=== PATIENT | male | born 1945 | race Caucasian/White ===

== ENCOUNTER 2023-11-28 11:53 | Emergency (ER) | payer OTHER, SELFPAY ==
[2023-11-28 12:06] VITALS: BP 164/89; BP 183/114; PULSE 100; PULSE 87; RESP 18; TEMP 36.7; O2SAT 96; O2SAT 97; BMI 29.4
--- NOTE | 2023-11-28 12:42 | PC.NURSE ---
A+O x4, FROM HOME, NOSEBLEED x 1hr, PREVIOUS NOSEBLEED x 2 wks AGO LASTED ABOUT 30-45 MINS. NO PREVIOUS HX OF NOSEBLEEDS. Hx AFIB-ON ELIQUIS, PCP LOWERED DOSE AFTER 1st NOSEBLEED EPISODE. HTN-ON METOPROLOL, DID NOT TAKE MED TODAY, EMS BP 183/114, B/P IN ER 164/89. RECENT DX LUKEMIA, BEING FOLLOWED BY [facility].
--- NOTE | 2023-11-28 14:17 | ED.GENADULT ---
HPI - General Adult General Chief complaint: General Medical Stated complaint: NOSEBLEED X1 HOUR,+THINNERS,BP 192/118,HX LEUKEMIA Time Seen by Provider: 11/28/23 14:05 Source: patient Mode of arrival: EMS Limitations: no limitations History of Present Illness HPI narrative: Patient is a 78-year-old male on long-term anticoagulation with Eliquis, history of leukemia who presents emergency department via EMS for evaluation of epistaxis Patient provides his electronic health portal with most recent CBC from 11/22/2023 including WBC 433,000, H&H 10/39.8 [place] [address] she is actually increased when compared to his prior levels of the past 6 months. He reports an episode of epistaxis approximately 2 weeks ago, he spoke with his software quality engineer, Dr. Rebecca harmon who advised him to decrease his Eliquis to 5 mg daily rather than twice daily. He states that he underwent cardiac ablation in June of last year at [facility] with Dr. Friedman and states that in 6 months he has a follow-up visit in at that time he may consider completely discontinuing the Eliquis. Denies any trauma today that would have brought on this episode of epistaxis. Bleeding is primarily from the right naris. Despite pressure application epistaxis persists and trickle down the oropharynx. Related Data Allergies Allergy/AdvReac Type Severity Reaction Status Date / Time sulfamethoxazole AdvReac Mild Rash Verified 11/28/23 12:36 [From Bactrim] trimethoprim [From Bactrim] AdvReac Mild Rash Verified 11/28/23 12:36 Review of Systems Review of Systems: Yes all other systems are reviewed and are negative PMFSH Past Medical History Attestation statement: The following information was validated with the patient. Source: old records reviewed Social History Social History Smoked in Last 30 Days: No Use of substances other than those prescribed or required for medical reasons: No Advance Directives: No Advance Directives Information Provided: No Physical Exam ED Vital Signs: Vital Signs - 24 hr 11/28/23 12:06 11/28/23 15:53 Temperature 98.1 F 97.7 F Pulse Rate 87 84 Respiratory Rate 18 16 Blood Pressure 164/89 H 113/77 Pulse Oximetry 96 96 Oxygen Delivery Method Room Air Room Air BMI result Body Mass Index 29.4 Appearance: Alert.?Oriented to person, place and time. No acute distress.?Normal affect. Eyes: Pupils equal, round and reactive to light.? ENT: Acute epistaxis of the right naris, expect the reading clots, noted to be in the posterior oropharynx Neck: Normal inspection.? Neck supple.?? CVS: Heart sounds normal. Normal heart rate and rhythm.? Pulses normal.?? Respiratory: No respiratory distress.? Lung sounds clear to auscultation bilaterally?? Abdomen: Soft and non-tender. Normoactive bowel sounds. ? Skin: Skin warm and dry.? Normal skin color.? Extremities: No lower extremity edema.? Neuro: Moves all extremities spontaneously. Sensation intact bilaterally. CN II-XII intact. No focal neuro deficits. Ambulates with normal steady gait. Course Reevaluation(s) Reevaluation #1: Intranasal afrin applied to the right nare with continuous pressure reapplied Time: 14:51 Reevaluation #2: Upon visual inspection noted to have an area right lateral naris at approximately 11:00 o'clock with active bleeding, applied silver nitrate with resolution. CBC is consistent with prior labs as per HPI. Will monitor in the emergency department for another 1-2 hours to assure bleeding cessation. Time: 15:29 Reevaluation #3: Signed out to Arely Horn NP. Time: 16:33 Medications Administered Discontinued Medications Generic Name Dose Route Start Last Admin Trade Name Abbie PRN Reason Stop Dose Admin Oxymetazoline HCl 2 spray 11/28/23 14:39 11/28/23 14:47 Oxymetazoline Hcl 0.05 % Nasal 15 Ml [place] NOSTRIL-B 11/28/23 14:40 2 spray ONCE ONE Administration Silver Nitrate 1 appl 11/28/23 15:08 11/28/23 16:31 Silver Nitrate Applicator Stick..Ea. TOPICAL 11/28/23 15:09 1 appl ONCE ONE Administration Procedures Epistaxis Control Time Out Performed: Yes Nostril: Yes right Nose prepped with: Yes oxymetazoline Direct inspection: Yes anterior source identified Direct inspection method: Yes nasal speculum and Yes otoscope Clots removed by: Yes blowing nose Epistaxis treatment: Yes silver nitrate cautery Results of treatment: Yes bleeding controlled Complications: Yes none Medical Decision Making Medical Decision Making MDM Narrative: Patient is a 78-year-old male with past medical history of atrial fibrillation, hyperlipidemia, leukemia recently started on Pirtobrutinib/ Jayprica, hypothyroidism, presenting to emergency department for evaluation of right naris epistaxis. Has had some resolution with anterior naris pressure, he was noted to expectorate clotted blood and has tosha blood to the posterior oropharynx though this may be secondary to positioning rather than posterior epistaxis. To obtain serum labs to evaluate for anemia/thrombocytopenia. Differential Diagnosis Differential Diagnoses: The differential diagnosis associated with the presentation includes (See narrative above) Admission/Observation Consideration of admission/observation: Escalation of care including admission/observation considered (See course narrative for further detail) Lab Data MDM Lab Attestation statement: I reviewed the patient's lab results. (See course narrative for further detail) 11/28/23 14:53 11/28/23 14:53 Labs: Lab Results 11/28/23 Range/Units 14:53 WBC 436.4 H* (4.8-10.8) X10*3/uL RBC 3.23 L (4.60-5.80) X10*6/uL Hgb 9.5 L (14.0-18.0) g/dl Hct 38.3 L (42.0-52.0) % MCV 118.6 H (80.0-98.0) fL MCH 29.4 (27.0-33.0) pg MCHC 24.8 L (31.0-36.0) g/dl RDW Not Reportable Plt Count 62 L (160-400) X10*3/uL MPV 11.2 (9.4-12.4) fL Immature Gran % (Auto) Cancelled Neut % (Auto) Cancelled Lymph % (Auto) Cancelled [place] % (Auto) Cancelled Eos % (Auto) Cancelled Baso % (Auto) Cancelled Lymph # (Auto) Cancelled [place] # (Auto) Cancelled Eos # (Auto) Cancelled Baso # (Auto) Cancelled Abs Immat Gran (auto) Cancelled Absolute Neuts (auto) Cancelled Absolute Nucleated RBC 0.000 (0.0-0.012) X10*3/uL Nucleated RBC % (auto) 0.0 (0.0-0.2) /100WBC Neutrophils % (Manual) 1 L (45-73) % Lymphocytes % (Manual) 99 H (20-40) % Abs Neuts (Manual) 4.4 (2.0-8.3) X10*3/uL Lymphocytes # (Manual) 432.0 H (1.2-4.9) X10*3/uL Smudge Cells PRESENT Platelet Estimate DECREASED (NORMAL) Plt Morphology Comment NORMAL RBC Morphology NOTED Macrocytosis 1+ (5-14) /OIF PT 12.6 (11.1-13.3) SEC INR 1.0 (0.9-1.1) Sodium 144 (135-145) mmol/L Potassium 4.4 (3.3-5.1) mmol/L Chloride 109 H (96-108) mmol/L Carbon Dioxide 27 (22-29) mmol/L Anion Gap 12 (12-20) BUN 20 H (9-16) mg/dL Creatinine 1.05 (0.5-1.4) mg/dL Estim Creat Clear Calc 68.6 Estimated GFR > 60 Random Glucose 102 (60-115) mg/dL Calcium 9.7 (8.4-10.2) mg/dL Total Bilirubin 0.6 (0.0-1.0) mg/dL AST 19 (5-37) U/L ALT 13 (0-40) U/L Alkaline Phosphatase 148 H (39-117) U/L Total Protein 7.2 (6.5-8.0) g/dL Albumin 4.1 (3.5-5.0) g/dL Independent Historian Clinical information obtained from an independent historian. History obtained from or confirmed by: Spouse (Present who confirms history) and EMS Critical Care Time Critical Care Time Critical Care Time: Yes Total Critical Care Time: 60 Attestation: I personally attest to this critical care time spent taking care of the patient exclusive of all other billable procedures was approximately 60 minutes including initial evaluation of patient, ordering tests, procedural management of epistaxis, documentation, re-evaluation. Discharge Plan Discharge Clinical Impression: Acute anterior epistaxis Patient Disposition: Home, Self-Care Instructions: Nosebleed (ED) Additional Instructions: Please follow-up closely with your software quality engineer. Should bleeding return you should return back to emergency department for further evaluation. Referrals: Cynthia Baldwin MD [Primary Care Provider] - Interventions: ED Discharge Assessment Last Done: 11/28/23 17:09 Discharge Date/Time: 11/28/23 17:10
[2023-11-28] MEDS: Oxymetazoline HCl 0.05 % Nasal 15 ML SPRAY 2 SPRAY NOSTRIL-B (14:47)
[2023-11-28 15:01] LABS: Hematocrit 38.3 % (42.0-52.0); Hemoglobin 9.5 g/dl (14.0-18.0); Mean Corpuscular HGB Conc 24.8 g/dl (31.0-36.0); Mean Corpuscular Hemoglobin 29.4 pg (27.0-33.0); Mean Platelet Volume 11.2 fL (9.4-12.4); PLT CLUMP 1; Red Blood Count 3.23 X10*6/uL (4.60-5.80)
[2023-11-28 15:04] LABS: Mean Corpuscular Volume 118.6 fL (80.0-98.0); WBC ABN SCTR FOR CBC 1
[2023-11-28 15:05] LABS: Prothrombin Time 12.6 SEC (11.1-13.3)
[2023-11-28 15:30] LABS: Alanine Aminotransferase 13 U/L (0-40); Albumin Level 4.1 g/dL (3.5-5.0); Alkaline Phosphatase 148 U/L (39-117); Anion Gap 12 (12-20); Aspartate Amino Transferase 19 U/L (5-37); Bilirubin Total 0.6 mg/dL (0.0-1.0); Blood Urea Nitrogen 20 mg/dL (9-16); Calcium 9.7 mg/dL (8.4-10.2); Carbon Dioxide 27 mmol/L (22-29); Chloride 109 mmol/L (96-108); Creatinine Clr Calc Pharmacy 68.6; Estimated Glomerular Filt Rate > 60; Glucose Random 102 mg/dL (60-115); Potassium 4.4 mmol/L (3.3-5.1); Sodium 144 mmol/L (135-145); Total Protein 7.2 g/dL (6.5-8.0)
[2023-11-28 15:43] LABS: Platelet Count 62 X10*3/uL (160-400); White Blood Count 436.4 X10*3/uL (4.8-10.8)
[2023-11-28 15:44] LABS: Lymphocytes Percent Manual 99 % (20-40); Neutrophils Percent Manual 1 % (45-73)
[2023-11-28 15:45] LABS: Macrocytosis 1+ (5-14) /OIF; Platelet Estimate DECREASED (NORMAL); Platelet Morphology Comment NORMAL; RBC Morphology NOTED; Smudge Cells PRESENT
[2023-11-28 15:52] LABS: Neutrophils Absolute Manual 4.4 X10*3/uL (2.0-8.3)
[2023-11-28 15:53] VITALS: BP 113/77; PULSE 84; RESP 16; TEMP 36.5; O2SAT 96
[2023-11-28] MEDS: Silver Nitrate Applicator STICK..EA. 1 APPL TOPICAL (16:31)
[2023-11-28 17:39] LABS: Rouleau PRESENT
== END 2023-11-28 17:10 | disposition home or self-care (01) ==
PROVIDERS: Nurse Practitioner Family; Emergency Provider Student in an Organized Health Care Education/Training Program; PCP Family Medicine
DX: R04.0 Epistaxis (principal); Z79.01 Long term (current) use of anticoagulants
CPT/HCPCS: 30901; 36415; 80053; 85007; 85025; 85027; 85610; 99283; 99284

== ENCOUNTER 2024-08-02 22:25 | Emergency (ER) | payer OTHER, SELFPAY ==
--- NOTE | 2024-08-02 | ECG_ITS ---
Test Reason : hypertension Blood Pressure : / mmHG Vent. Rate : 076 BPM Atrial Rate : 076 BPM P-R Int : 194 ms QRS Dur : 100 ms QT Int : 414 ms P-R-T Axes : 012 -21 019 degrees QTc Int : 465 ms Sinus rhythm with Premature supraventricular complexes Otherwise normal ECG No previous ECGs available Referred By: Generic ED Physician Electronically Signed By:Tariq Kingsley
--- NOTE | ~2024-08-02 | XR_ITS ---
EXAMINATION: XR CHEST CLINICAL INFORMATION: Cough COMPARISON: None available. TECHNIQUE: Frontal view of the chest was obtained. FINDINGS: Sternal wires overlie the chest. Cardiac silhouette is at the upper limits of normal in size, likely related to low lung volumes. Mild right basilar atelectasis with a small right pleural effusion. No pneumothorax. 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 XR/XR chest 1V IMPRESSION: Mild right basilar atelectasis with a small right pleural effusion. No focal airspace consolidation identified. Electronically signed by: Jaydon Coronado MD 08/02/2024 11:25 PM [facility]MONS
--- NOTE | ~2024-08-02 | CT_ITS ---
EXAMINATION: CT HEAD WITHOUT CONTRAST CLINICAL INFORMATION: Headache COMPARISON: None available. TECHNIQUE: Contiguous axial imaging was performed from the skull base to vertex without intravenous administration of contrast. This CT examination was performed using dose optimization techniques as appropriate, variously including the following: *Automated exposure control *Adjustment of mA and/or kV according to patient size (this includes techniques or standardized protocols for targeted exams where dose is matched to indication/reason for exam; i.e. extremities or head) *Use of iterative reconstruction technique DLP: 805 mGy-cm FINDINGS: No intracranial hemorrhage, tumors or acute infarcts identified. Mild diffuse symmetric prominence of ventricles and sulci. Mild scattered subcortical and periventricular white matter patchy hypodensities. Segmental calcific atherosclerosis of the cavernous portions of the internal carotid arteries. Normal appearance of the orbits and globes. No extra cranial soft tissue inflammatory changes. The left maxillary sinus is partially visualized and demonstrates near-complete opacification along with mural sclerosis and thickening. Findings are suspicious for chronic sinusitis. No mastoid or middle ear cavity effusions. CT/CT head/brain wo IV con IMPRESSION: 1. No acute intracranial abnormalities. 2. Chronic left maxillary sinusitis. 3. 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 Electronically signed by: Adrian Schultz MD 08/03/2024 12:56 AM [facility]
[2024-08-02 22:33] VITALS: BP 190/103; PULSE 70; O2SAT 98
[2024-08-02 22:34] VITALS: BP 189/117; PULSE 80; RESP 17; TEMP 36.6; O2SAT 96
[2024-08-02 22:58] LABS: Hemoglobin 12.5 g/dl (14.0-18.0); Mean Corpuscular Volume 99.5 fL (80.0-98.0); Mean Platelet Volume 11.7 fL (9.4-12.4); PLT CLUMP 1; WBC ABN SCTR FOR CBC 1
[2024-08-02 23:00] LABS: Hematocrit 39.6 % (42.0-52.0); Mean Corpuscular HGB Conc 31.6 g/dl (31.0-36.0); Mean Corpuscular Hemoglobin 31.4 pg (27.0-33.0); Red Blood Count 3.98 X10*6/uL (4.60-5.80); Red Cell Distribution Width 15.2 % (11.0-16.0)
[2024-08-02 23:06] LABS: Alanine Aminotransferase 19 U/L (0-40); Alkaline Phosphatase 88 U/L (39-117); Anion Gap 13 (12-20); Aspartate Amino Transferase 24 U/L (5-37); Bilirubin Total 0.4 mg/dL (0.0-1.0); Blood Urea Nitrogen 17 mg/dL (9-16); Calcium 8.7 mg/dL (8.4-10.2); Carbon Dioxide 26 mmol/L (22-29); Chloride 107 mmol/L (96-108); Creatinine Clr Calc Pharmacy 54.6; Estimated Glomerular Filt Rate 49; Glucose Random 136 mg/dL (60-115); Potassium 3.9 mmol/L (3.3-5.1); Sodium 142 mmol/L (135-145); Total Protein 6.9 g/dL (6.5-8.0)
[2024-08-02 23:13] LABS: Troponin-I High Sensitivity 15.7 ng/L (<3.5-35.0)
[2024-08-02 23:15] LABS: Platelet Count 92 X10*3/uL (160-400)
[2024-08-02 23:17] LABS: White Blood Count 117.7 X10*3/uL (4.8-10.8)
[2024-08-02 23:39] LABS: Influenza A PCR NEGATIVE (Negative); Influenza B PCR NEGATIVE (Negative); Resp Syncy Virus RNA Qual PCR NEGATIVE (Negative); SARS COV2 PCR INHOUSE NEGATIVE (Negative)
--- NOTE | 2024-08-02 23:43 | ED_ITS ---
HPI - General Adult General Chief complaint: Headache Stated complaint: Htn, headache, a-fib Time Seen by Provider: 08/02/24 23:17 Source: patient History of Present Illness ED Provider: Rom YOO narrative: 78-year-old male with past medical history of leukemia presenting for headache and hypertension. Patient states that he has been experiencing nasal congestion and cough for approximately 1 week. Over the past few days he has been experiencing right-sided headache and noticed that his blood pressure was elevated. He states he has not missed any of his home medication. He denies visual disturbances, chest pain, shortness of breath, abdominal pain, nausea, vomiting, urinary symptoms, fevers, chills. Related Data Allergies Allergy/AdvReac Type Severity Reaction Status Date / Time sulfamethoxazole AdvReac Mild Rash Verified 08/02/24 22:36 [From Bactrim] trimethoprim [From Bactrim] AdvReac Mild Rash Verified 08/02/24 22:36 Review of Systems 2 Review of Systems: Patient endorses nasal congestion, cough, headache and hypertension Yes all other systems are reviewed and are negative [facility] Social History Social History Smoked in Last 30 Days: No Use of substances other than those prescribed or required for medical reasons: No Advance Directives: No Do you have a plan to hurt others: No Plan Physical Exam ED Vital Signs: Vital Signs - 24 hr 08/02/24 22:34 08/03/24 00:39 08/03/24 00:42 Temperature 97.8 F Pulse Rate 80 88 Respiratory Rate 17 18 Blood Pressure 189/117 H 182/96 H 181/94 H Pulse Oximetry 96 98 Oxygen Delivery Method Room Air Room Air 08/03/24 01:08 08/03/24 01:36 Temperature Pulse Rate 74 Respiratory Rate 14 Blood Pressure 173/99 H 174/87 H Pulse Oximetry Oxygen Delivery Method BMI result Body Mass Index 30.0 Well-appearing in no acute distress Mild bilateral maxillary sinus tenderness to palpation Oropharynx clear with no erythema or exudates Lungs clear to auscultation bilaterally; normal S1-S2 regular rate and rhythm Abdomen is soft nontender nondistended Medications Administered Discontinued Medications Generic Name Dose Route Start Last Admin Trade Name Freq PRN Reason Stop Dose Admin Acetaminophen 650 mg 08/02/24 23:44 08/03/24 00:05 Acetaminophen 325 Mg Tablet PO 08/02/24 23:45 650 mg ONCE ONE Administration Hydralazine HCl 5 mg 08/03/24 00:29 08/03/24 00:39 Hydralazine Hcl 20 Mg/Ml Vial IVPUSH 08/03/24 00:30 5 mg ONCE ONE Administration Protocol Hydralazine HCl 5 mg 08/03/24 01:31 08/03/24 01:36 Hydralazine Hcl 20 Mg/Ml Vial IVPUSH 08/03/24 01:32 5 mg ONCE ONE Administration Protocol Medical Decision Making Medical Decision Making [facility] Narrative: This is a 78-year-old male presenting for cough, congestion headache and hypertension. Concerned for the following; right URI, COVID, flu, pneumonia, head bleed, uncontrolled hypertension, hypertensive emergency/urgency, electrolyte/metabolic disturbance Labs and imaging studies ordered Labs notable for elevated white blood cell count (patient has leukemia and confirmed he has high WBCs), stable H&H, electrolytes within normal limits, slightly elevated creatinine, troponin of 5.7 Sinus rhythm EKG with no signs of ischemia And not appreciate head bleed on patient's CT scan and the Radiology impression is negative for acute intracranial findings although chronic sinusitis was noted. I also reviewed patient's chest x-ray and do not appreciate a large pneumo or pneumonia however the radiologist notes small right pleural effusion Patient was treated with hydralazine and hydrochlorothiazide with improvement in blood pressure. I also provided Afrin for On reassessment patient is still well-appearing and walking with steady gait. He would like to be discharged home. I told him that he has an AQUILINO I gave him follow up instructions stating that he needs to have his creatinine rechecked in a few days to make sure it is not worsening and I gave him return precautions. Patient pending 2nd troponin. He was signed out to night doctor. Lab Data 08/02/24 22:46 08/02/24 22:46 Labs: Lab Results 08/02/24 Range/Units 22:46 WBC 117.7 H* (4.8-10.8) X10*3/uL RBC 3.98 L D (4.60-5.80) X10*6/uL Hgb 12.5 L D (14.0-18.0) g/dl Hct 39.6 L (42.0-52.0) % MCV 99.5 H (80.0-98.0) fL MCH 31.4 (27.0-33.0) pg MCHC 31.6 (31.0-36.0) g/dl RDW 15.2 (11.0-16.0) % Plt Count 92 L D (160-400) X10*3/uL MPV 11.7 (9.4-12.4) fL Immature Gran % (Auto) Cancelled Neut % (Auto) Cancelled Lymph % (Auto) Cancelled [place] % (Auto) Cancelled Eos % (Auto) Cancelled Baso % (Auto) Cancelled Lymph # (Auto) Cancelled [place] # (Auto) Cancelled Eos # (Auto) Cancelled Baso # (Auto) Cancelled Abs Immat Gran (auto) Cancelled Absolute Neuts (auto) Cancelled Absolute Nucleated RBC 0.000 (0.0-0.012) X10*3/uL Nucleated RBC % (auto) 0.0 (0.0-0.2) /100WBC Neutrophils % (Manual) 4 L (45-73) % Band Neutrophils % 0 L (3-5) % Lymphocytes % (Manual) 96 H (20-40) % Abs Neuts (Manual) 4.7 (2.0-8.3) X10*3/uL Lymphocytes # (Manual) 113.0 H (1.2-4.9) X10*3/uL Smudge Cells PRESENT Platelet Estimate DECREASED (NORMAL) Plt Morphology Comment NORMAL RBC Morphology NOTED Macrocytosis 1+ (5-14) /OIF Spherocytes 1+ (0-2) /OIF Tear Drop Cells 1+ (0-2) /OIF Ovalocytes 1+ (5-14) /OIF Acanthocytes ([place]) 1+ (0-2) /OIF Sodium 142 (135-145) mmol/L Potassium 3.9 (3.3-5.1) mmol/L Chloride 107 (96-108) mmol/L Carbon Dioxide 26 (22-29) mmol/L Anion Gap 13 (12-20) BUN 17 H (9-16) mg/dL Creatinine 1.41 H (0.5-1.4) mg/dL Estim Creat Clear Calc 54.6 Estimated GFR 49 Random Glucose 136 H (60-115) mg/dL Calcium 8.7 D (8.4-10.2) mg/dL Total Bilirubin 0.4 (0.0-1.0) mg/dL AST 24 (5-37) U/L ALT 19 (0-40) U/L Alkaline Phosphatase 88 (39-117) U/L Troponin I High Sens 15.7 (<3.5-35.0) ng/L Total Protein 6.9 (6.5-8.0) g/dL Albumin 4.0 (3.5-5.0) g/dL Influenza Type A (PCR) NEGATIVE (Negative) Influenza Type B (PCR) NEGATIVE (Negative) RSV RNA Qual (PCR) NEGATIVE (Negative) SARS-CoV-2 RNA (RT-PCR) NEGATIVE (Negative) Discharge Plan Discharge Clinical Impression: Headache Qualifiers: Headache type: other headache syndrome Qualified Code(s): G44.89 - Other headache syndrome Hypertension Qualifiers: Hypertension type: unspecified Qualified Code(s): I10 - Essential (primary) hypertension Sinusitis Qualifiers: Sinusitis location: unspecified location Chronicity: unspecified Qualified Code(s): J32.9 - Chronic sinusitis, unspecified Patient Disposition: Home, Self-Care Print Language: Turkmen
[2024-08-03] MEDS: Acetaminophen 325 MG TABLET 650 MG PO (00:05)
[2024-08-03 00:32] LABS: Band Neutrophils Percent 0 % (3-5); Lymphocytes Percent Manual 96 % (20-40); Neutrophils Absolute Manual 4.7 X10*3/uL (2.0-8.3); Neutrophils Percent Manual 4 % (45-73)
[2024-08-03 00:33] LABS: Macrocytosis 1+ (5-14) /OIF; Platelet Estimate DECREASED (NORMAL); Platelet Morphology Comment NORMAL; RBC Morphology NOTED
[2024-08-03 00:34] LABS: Acanthocytes 1+ (0-2) /OIF; Ovalocytes 1+ (5-14) /OIF; Smudge Cells PRESENT; Spherocytes 1+ (0-2) /OIF; Tear Drop Cells 1+ (0-2) /OIF
[2024-08-03 00:39] VITALS: BP 182/96
[2024-08-03] MEDS: hydrALAZINE HCl 20 MG/ML VIAL 5 MG IVPUSH ×2 (00:39→01:36)
[2024-08-03 00:42] VITALS: BP 181/94; PULSE 88; RESP 18; O2SAT 98
[2024-08-03 01:08] VITALS: BP 173/99; PULSE 74; RESP 14
[2024-08-03 01:36] VITALS: BP 174/87
[2024-08-03] MEDS: ondansetron HCL 4 MG/2 ML VIAL IVPUSH (02:40)
[2024-08-03 03:09] LABS: Troponin-I High Sensitivity 14.6 ng/L (<3.5-35.0)
[2024-08-03 04:18] VITALS: BP 148/81; PULSE 75; RESP 16; TEMP 36.9; O2SAT 98
[2024-08-03] MEDS: Amoxicillin/Potassium Clav 875 MG TABLET PO (04:20)
[2024-08-03 04:25] VITALS: BP 148/81; PULSE 75; RESP 16; TEMP 36.9; O2SAT 98
== END 2024-08-03 04:25 | disposition home or self-care (01) ==
PROVIDERS: Student in an Organized Health Care Education/Training Program; Emergency Provider Emergency Medicine Emergency Medical Services; PCP Pediatrics
DX: J32.9 Chronic sinusitis, unspecified (principal); R51.9 Headache, unspecified; I10 Essential (primary) hypertension; R94.31 Abnormal electrocardiogram [ECG] [EKG]; Z03.818 Encounter for observation for suspected exposure to other biological agents ruled out; Z79.899 Other long term (current) drug therapy
CPT/HCPCS: 0241U; 36415; 70450; 71045; 80053; 84484; 85007; 85025; 85027; 93005; 96374; 96375; 96376; 99284; 99285; J0360; J2405

== ENCOUNTER → 2024-08-02 22:38 | Outpatient (BNV) | payer OTHER, SELFPAY | PROVIDERS: Emergency Provider Emergency Medicine Emergency Medical Services; PCP Pediatrics; Visit Provider Internal Medicine Cardiovascular Disease | DX: I10 Essential (primary) hypertension (principal) | CPT/HCPCS: 93010 ==

== ENCOUNTER 2024-10-27 14:56 | Emergency (ER) | payer OTHER, SELFPAY ==
[2024-10-27] VITALS (7 sets, daily range): BP systolic 168–197; BP diastolic 110–124; PULSE 81–97; RESP 16–20; TEMP 36.5–36.7; O2SAT 95–98; BMI 31.8
--- NOTE | 2024-10-27 | ECG_ITS ---
Test Reason : hypertention Blood Pressure : */* mmHG Vent. Rate : 107 BPM Atrial Rate : 107 BPM P-R Int : 188 ms QRS Dur : 92 ms QT Int : 392 ms P-R-T Axes : 92 -30 14 degrees QTcB Int : 523 ms Sinus tachycardia with Premature atrial complexes Left axis deviation Cannot rule out Anterior infarct , age undetermined Prolonged QT Abnormal ECG When compared with ECG of 02-Aug-2024 22:38, QT has lengthened Referred By: Generic ED Physician Electronically Signed By: Tariq Kingsley
--- NOTE | ~2024-10-27 | CT_ITS ---
CLINICAL HISTORY: headache, HTN CT head without contrast Comparison: Head CT from 08/02/2024 Findings: No acute intracranial hemorrhage. No midline shift or hydrocephalus. Mild volume loss is generalized without significant change. No significant change in mild white matter lesions likely small-vessel ischemic disease. Vascular calcifications are redemonstrated. Near-complete opacification of the imaged left maxillary sinus. No acute skull fracture. Imaged mastoid air cells are well aerated. IMPRESSION: 1. No acute intracranial abnormality by CT. 2. Near-complete opacification of the left maxillary sinus as can be seen with sinusitis. This document has been electronically signed by: Pedro Edwards MD on 10/27/2024 19:36:50
[2024-10-27 16:44] LABS: Hematocrit 42.4 % (42.0-52.0); Hemoglobin 13.4 g/dl (14.0-18.0); Mean Corpuscular HGB Conc 31.6 g/dl (31.0-36.0); Mean Corpuscular Hemoglobin 31.5 pg (27.0-33.0); Mean Corpuscular Volume 99.8 fL (80.0-98.0); Mean Platelet Volume 11.4 fL (9.4-12.4); Platelet Count 96 X10*3/uL (160-400); Red Blood Count 4.25 X10*6/uL (4.60-5.80); Red Cell Distribution Width 14.4 % (11.0-16.0)
[2024-10-27 16:45] LABS: WBC ABN SCTR FOR CBC 1
[2024-10-27 16:50] LABS: White Blood Count 75.5 X10*3/uL (4.8-10.8)
[2024-10-27 16:57] LABS: Alanine Aminotransferase 22 U/L (0-40); Albumin Level 4.4 g/dL (3.5-5.0); Alkaline Phosphatase 84 U/L (39-117); Anion Gap 15 (12-20); Aspartate Amino Transferase 29 U/L (5-37); Bilirubin Total 0.7 mg/dL (0.0-1.0); Blood Urea Nitrogen 16 mg/dL (9-16); Calcium 9.4 mg/dL (8.4-10.2); Carbon Dioxide 27 mmol/L (22-29); Chloride 104 mmol/L (96-108); Creatinine Clr Calc Pharmacy 78.1; Estimated Glomerular Filt Rate > 60; Glucose Random 117 mg/dL (60-115); Potassium 4.3 mmol/L (3.3-5.1); Sodium 142 mmol/L (135-145); Total Protein 7.7 g/dL (6.5-8.0)
[2024-10-27 17:18] LABS: Atypical Lymph Absolute Manual 0.8 x10*3/uL; Atypical Lymphs Percent Manual 1 % (0-6); Lymphocytes Absolute Manual 67.2 X10*3/uL (1.2-4.9); Lymphocytes Percent Manual 89 % (20-40); Monocytes Absolute Manual 0.8 X10*3/uL (0.1-1.2); Monocytes Percent Manual 1 % (2-11); Neutrophils Percent Manual 9 % (45-73)
[2024-10-27 17:19] LABS: Acanthocytes 1+ (0-2) /OIF; Band Neutrophils Percent 0 % (3-5); Neutrophils Absolute Manual 6.8 X10*3/uL (2.0-8.3); Platelet Estimate DECREASED (NORMAL); Platelet Morphology Comment NORMAL; RBC Morphology NOTED; Schistocytes 1+ (0-2) /OIF
--- NOTE | 2024-10-27 18:16 | ED_ITS ---
HPI - General Adult General Chief complaint: Headache Stated complaint: Headache HTN Time Seen by Provider: 10/27/24 18:16 Source: patient, family (patient's ) and EMS Mode of arrival: EMS Limitations: no limitations History of Present Illness ED Provider: Tiara Reed PA-C HPI narrative: Patient is a 79 year old assigned male at with a history of CLL + hypogammaglobinemia (on IVIG infusions monthly and pirtobruinib), HTN, and chronic bronchitis presenting to the emergency department today with a headache and elevated blood pressure. Patient states that he was supposed to have an allergy test today because of increased congestion and in preparation for this test, his lead java software engineer told him to decrease and then hold his blood pressure medication. Patient states that he showed up to his appointment for the test and was told that his blood pressure was too high to do the test and to take his medicine immediately. Patient states that he has a mild headache. Patient denies any dizziness, lightheadedness, abdominal pain, nausea, vomiting, fever, chills, blurry vision, double vision, loss of vision, chest pain, difficulty breathing, shortness of breath, back pain, night sweats, pain with urination, increased urinary frequency, increased urinary urgency, blood in his urine or stool, syncope or a near syncopal episode, recent trauma or falls, bowel incontinence, bladder incontinence, or any other complaints at this time. Relieving factors: none Exacerbating factors: none Associated symptoms: denies other symptoms Treatments prior to arrival: none Related Data Previous Rx's ?Medication ?Instructions ?Recorded amoxicillin 875 mg-potassium 1 tab PO Q12H 10 days #20 tabs 08/03/24 clavulanate 125 mg tablet ondansetron 4 mg disintegrating 4 mg PO Q6-8H PRN nausea and 08/03/24 tablet vomiting #14 tabs Allergies Allergy/AdvReac Type Severity Reaction Status Date / Time idelalisib Allergy Palpitation Verified 10/27/24 15:15 s sulfamethoxazole AdvReac Mild Rash Verified 08/02/24 22:36 [From Bactrim] trimethoprim [From Bactrim] AdvReac Mild Rash Verified 08/02/24 22:36 Review of Systems 2 Constitutional: Constitutional: Reports no additional constitutional complaints, Denies chills, Denies fever(s), Reports headache(s) (mild) and Denies night sweats Eyes: Eyes: Reports no additional eye complaints, Denies blurry vision, Denies change in vision, Denies diplopia, Denies eye discharge, Denies loss of vision and Denies eye pain ENT: Denies dizziness and Reports headache(s) (mild) Cardiovascular: Cardiovascular: Reports no additional cardiovascular complaints, Denies chest pain, Denies lightheadedness, Denies Loss of Consciousness and Denies dyspnea Respiratory: Respiratory: Reports no additional respiratory complaints and Denies dyspnea Gastrointestinal: Gastrointestinal: Reports no additional gastrointestinal complaints, Denies abdominal pain, Denies melena, Denies hematochezia, Denies change in bowel habits and Denies change in stool character Genitourinary: Genitourinary: Reports no additional male genitourinary complaints, Denies hematuria, Denies oliguria, Denies difficulty urinating, Denies dysuria, Denies urinary frequency, Denies urinary hesitancy, Denies urinary incontinence and Denies urinary urgency Musculoskeletal: Musculoskeletal: Reports no additional musculoskeletal complaints, Denies numbness and Denies tingling Neurologic: Denies dizziness, Reports headache(s) (mild), Denies loss of vision, Denies numbness and Denies tingling Psychiatric: Psychiatric: Reports no additional psychiatric complaints Endocrine: Endocrine: Reports no additional endocrine complaints Hematologic/Lymphatic: Hematologic/Lymphatic: Reports no additional hematologic/lymphatic complaints Allergic/Immunologic: Allergic/Immunologic: Reports no additional allergic/immunologic complaints PMFSH Past Medical History Attestation statement: The following information was validated with the patient. (patient's validated all information) Source: old records reviewed, obtained from family (patient's provided additional history and confirmed the history provided by the patient) and nursing notes reviewed Physical Exam ED Vital Signs: Vital Signs - 24 hr 10/27/24 15:08 10/27/24 15:13 10/27/24 18:18 Temperature 97.7 F 97.7 F Pulse Rate 89 82 81 Respiratory Rate 18 20 16 Blood Pressure 197/117 H 197/117 H 172/110 H Pulse Oximetry 97 97 97 Oxygen Delivery Method Room Air Room Air Room Air 10/27/24 19:34 10/27/24 20:30 10/27/24 20:34 Temperature 98.1 F 97.7 F 97.7 F Pulse Rate 90 88 88 Respiratory Rate 20 18 18 Blood Pressure 168/110 H 179/115 H 179/115 H Pulse Oximetry 95 97 97 Oxygen Delivery Method Room Air Room Air Room Air BMI result Body Mass Index 31.8 Const General: cooperative, no acute distress, alert and awake Nutritional Appearance: well nourished Orientation/consciousness: patient oriented x3 Limitations: no limitations HENMT Head: Yes normal to inspection and Yes atraumatic Ears: hearing grossly normal bilaterally and external ears normal General nose exam: Normal external nose present, no nasal discharge noted and no epistaxis Face and sinus: Yes normal facial exam, No abrasion and No laceration Mouth: Normal oral and palatal mucosa present, no drooling and no muffled voice Eyes General: appearance normal, both eyes and all related structures Periorbital: periorbital findings normal Eyelids: Yes eyelids normal Conjunctivae: conjunctivae normal Pupils: Equal, round and reactive pupils present EOM: EOMs intact bilaterally Neck Neck: Yes normal visual inspection, Yes full ROM and Yes no lymphadenopathy Chest Chest palpation & inspection: normal inspection of the chest Resp Effort & Inspection: normal respiratory effort and able to speak in complete sentences GI Inspection: Yes normal to inspection Neuro General: patient oriented x3, moves all extremities and CN's II-XI intact bilaterally Cranial nerves: Yes Equal, round and reactive pupils present Cognition (Neuro): normal cognition Extrem General: Yes normal to inspection, Yes full ROM and Yes capillary refill normal Psych Appearance: grossly normal Mental Status: mental status grossly normal Affect: normal affect Attitude: cooperative Thought process: Normal thought process present Thought content: Normal thought content present Insight: Good insight present (Psych) Medications Administered Discontinued Medications Generic Name Dose Route Start Last Admin Trade Name Abbie PRN Reason Stop Dose Admin Magnesium Oxide 800 mg 10/27/24 20:36 10/27/24 20:39 Magnesium Oxide 400 Mg Tablet PO 10/27/24 20:37 800 mg ONCE ONE Administration Metoprolol Tartrate 2.5 mg 10/27/24 18:23 10/27/24 18:40 Metoprolol Tartrate 5 Mg/5 Ml Vial IVPUSH 10/27/24 18:24 2.5 mg ONCE ONE Administration Protocol Ondansetron HCl 4 mg 10/27/24 18:41 10/27/24 18:43 Ondansetron Hcl 4 Mg/2 Ml Vial IVPUSH 02/07/25 18:42 4 mg ONCE ONE Administration Medical Decision Making Medical Decision Making [facility] Narrative: Patient is a 79 year old assigned male at with a history of CLL + hypogammaglobinemia (on IVIG infusions monthly and pirtobruinib), HTN, and chronic bronchitis presenting to the emergency department today with a headache and elevated blood pressure. Patient's physical exam was unremarkable. Patient's blood work showed a chronically elevated WBC count but was otherwise unremarkable. Patient's EKG showed mild QT prolongation for which he was given 800mg of PO magnesium. Patient's head CT showed complete ossafication of the left sinus. I explained my physical exam findings as well as all test results to the patient and the patient's . I answered all questions asked by the patient and the patient's . Patient stated that he is to follow up with his ENT next week and that he has been battling his sinus issues for weeks. Given he has close follow up with ENT - will defer to them for beginning antibiotics. Patient was given a 2.5mg of Lopressor which did lower his blood pressure some. Patient had an episode of nausea while the nurse was placing his IV but this passed without producing any vomit. I stressed the importance of the patient taking his medication as directed (either prescribed or as the over the counter packaging recommends). I stressed the importance of the patient following up with his primary care provider, ENT, crm campaign manager/oncologist, and his lead java software engineer. I stressed the importance of the patient returning to the emergency department immediately if his symptoms were to worsen or if he were to develop any dizziness, shortness of breath, difficulty breathing, chest pain, blurry vision, loss of vision, nausea, vomiting, abdominal pain, fever, chills, back pain, or any other complaints. Patient and the patient's verbalized agreement and understanding with this treatment plan and discharge. Differential Diagnosis Differential Diagnoses: The differential diagnosis associated with the presentation includes HTN Headache Sinusitis Admission/Observation Consideration of admission/observation: Escalation of care including admission/observation considered Patient would have been admitted to the hospital had his work up had any findings where hospital admission was appropriate and his clinical presentation warranted hospital admission. Lab Data [facility] Lab Attestation statement: I reviewed the patient's lab results. My interpretation of these results are in the [facility] Rationale portion of this note. 10/27/24 16:33 10/27/24 16:33 Labs: Lab Results 10/27/24 10/27/24 Range/Units 16:33 19:22 WBC 75.5 H* (4.8-10.8) X10*3/uL RBC 4.25 L (4.60-5.80) X10*6/uL Hgb 13.4 L (14.0-18.0) g/dl Hct 42.4 (42.0-52.0) % MCV 99.8 H (80.0-98.0) fL MCH 31.5 (27.0-33.0) pg MCHC 31.6 (31.0-36.0) g/dl RDW 14.4 (11.0-16.0) % Plt Count 96 L (160-400) X10*3/uL MPV 11.4 (9.4-12.4) fL Immature Gran % (Auto) Cancelled Neut % (Auto) Cancelled Lymph % (Auto) Cancelled [place] % (Auto) Cancelled Eos % (Auto) Cancelled Baso % (Auto) Cancelled Lymph # (Auto) Cancelled [place] # (Auto) Cancelled Eos # (Auto) Cancelled Baso # (Auto) Cancelled Abs Immat Gran (auto) Cancelled Absolute Neuts (auto) Cancelled Absolute Nucleated RBC 0.000 (0.0-0.012) X10*3/uL Nucleated RBC % (auto) 0.0 (0.0-0.2) /100WBC Neutrophils % (Manual) 9 L (45-73) % Band Neutrophils % 0 L (3-5) % Lymphocytes % (Manual) 89 H (20-40) % Atypical Lymphs % (Man) 1 (0-6) % Monocytes % (Manual) 1 L (2-11) % Abs Neuts (Manual) 6.8 (2.0-8.3) X10*3/uL Lymphocytes # (Manual) 67.2 H (1.2-4.9) X10*3/uL Atyp Lymphs # (Manual) 0.8 x10*3/uL Monocytes # (Manual) 0.8 (0.1-1.2) X10*3/uL Platelet Estimate DECREASED (NORMAL) Plt Morphology Comment NORMAL RBC Morphology NOTED Acanthocytes (Spur) 1+ (0-2) /OIF Schistocytes 1+ (0-2) /OIF Sodium 142 (135-145) mmol/L Potassium 4.3 (3.3-5.1) mmol/L Chloride 104 (96-108) mmol/L Carbon Dioxide 27 (22-29) mmol/L Anion Gap 15 (12-20) BUN 16 (9-16) mg/dL Creatinine 0.94 (0.5-1.4) mg/dL Estim Creat Clear Calc 78.1 Estimated GFR > 60 Random Glucose 117 H (60-115) mg/dL Calcium 9.4 D (8.4-10.2) mg/dL Total Bilirubin 0.7 (0.0-1.0) mg/dL AST 29 (5-37) U/L ALT 22 (0-40) U/L Alkaline Phosphatase 84 (39-117) U/L Total Protein 7.7 (6.5-8.0) g/dL Albumin 4.4 (3.5-5.0) g/dL Influenza Type A (PCR) NEGATIVE (Negative) Influenza Type B (PCR) NEGATIVE (Negative) RSV RNA Qual (PCR) NEGATIVE (Negative) SARS-CoV-2 RNA (RT-PCR) NEGATIVE (Negative) Independent Interpretation I performed an independent interpretation of an: EKG and CT Scan Interpretation: My interpretation is in agreement with the radiologist's impression of this imaging study. L Report Number: [id number]: Total DLP = 778.00 mGy-cm CLINICAL HISTORY: headache, HTN CT head without contrast Comparison: Head CT from 08/02/2024 Findings: No acute intracranial hemorrhage. No midline shift or hydrocephalus. Mild volume loss is generalized without significant change. No significant change in mild white matter lesions likely small-vessel ischemic disease. Vascular calcifications are redemonstrated. Near-complete opacification of the imaged left maxillary sinus. No acute skull fracture. Imaged mastoid air cells are well aerated. IMPRESSION: 1. No acute intracranial abnormality by CT. 2. Near-complete opacification of the left maxillary sinus as can be seen with sinusitis. This document has been electronically signed by: Pedro Edwards MD on 10/27/2024 19:36:50 Dictated By: Pedro Edwards MD Signed By: Electronically signed by Pedro Edwards MD 10/27/241936 Vent. Rate: 107 BPM Atrial Rate: 107 BPM P-R Int: 188 ms QRS Dur: 92 ms QT Int: 392 ms P-R-T Axes: 92 -30 14 degrees QTcB Int: 523 ms Sinus tachycardia with Premature atrial complexes Left axis deviation Cannot rule out Anterior infarct , age undetermined Prolonged QT When compared with ECG of 02-Aug-2024 22:38, QT has lengthened DD/ 1519 Radiology Impression Discussion of test interpretation with radiology: I have reviewed the radiologist's reading. Independent Historian Clinical information obtained from an independent historian. History obtained from or confirmed by: Spouse (patient's provided additional history and confirmed the history provided by the patient.) and EMS (EMS provided additional history and confirmed the history provided by the patient.) Chronic Conditions Patient?s care impacted by: Hypertension Discharge Plan Discharge Clinical Impression: Headache, Hypertension, Sinusitis, Prolonged QT interval Patient Disposition: Home, Self-Care Instructions: Sinusitis (ED), Acute Headache (DC), Chronic Hypertension (DC) Additional Instructions: Follow up with your primary care provider, your crm campaign manager / oncologist, your lead java software engineer, and your ENT specialist as scheduled. Please take your medication as prescribed. Return to the emergency department immediately if your symptoms worsen or if you develop any dizziness, shortness of breath, difficulty breathing, chest pain, blurry vision, loss of vision, nausea, vomiting, abdominal pain, fever, chills, back pain, or any other complaints. Prescriptions: No Action amoxicillin-pot clavulanate 875-125 mg tablet 1 tab PO Q12H 10 Days Qty: 20 0RF ondansetron 4 mg tablet,disintegrating 4 mg PO Q6-8H PRN (Reason: nausea and vomiting) Qty: 14 0RF Referrals: Cynthia Baldwin MD [Primary Care Provider] - Interventions: ED Discharge Assessment Last Done: 10/27/24 20:34 Discharge Date/Time: 10/27/24 20:41 Print Language: Tajik
[2024-10-27] MEDS: Metoprolol Tartrate 5 MG/5 ML VIAL 2.5 MG IVPUSH (18:40)
[2024-10-27] MEDS: ondansetron HCL 4 MG/2 ML VIAL IVPUSH (18:43)
[2024-10-27 20:14] LABS: Influenza A PCR NEGATIVE (Negative); Influenza B PCR NEGATIVE (Negative); Resp Syncy Virus RNA Qual PCR NEGATIVE (Negative); SARS COV2 PCR INHOUSE NEGATIVE (Negative)
[2024-10-27] MEDS: Magnesium Oxide 400 MG TABLET 800 MG PO (20:39)
--- NOTE | 2024-10-27 20:40 | PC.NURSE ---
at the time of discharge, provider noted pt to have prolonged QT. IV access already pulled. pt discharged from the board. pt placed back in the room. medication administered per provider order. pt re-discharged w/o complications.
== END 2024-10-27 20:41 | disposition home or self-care (01) ==
PROVIDERS: Physician Assistant Medical; Emergency Provider Emergency Medicine; PCP Family Medicine
DX: R51.9 Headache, unspecified (principal); J32.9 Chronic sinusitis, unspecified; R94.31 Abnormal electrocardiogram [ECG] [EKG]; I10 Essential (primary) hypertension; Z03.818 Encounter for observation for suspected exposure to other biological agents ruled out; Z79.899 Other long term (current) drug therapy
CPT/HCPCS: 0241U; 36415; 70450; 80053; 85007; 85027; 93005; 99284; 99285; J2405

== ENCOUNTER → 2024-10-27 15:19 | Outpatient (BNV) | payer OTHER, SELFPAY | PROVIDERS: Emergency Provider Emergency Medicine; PCP Family Medicine; Visit Provider Internal Medicine Cardiovascular Disease | DX: R94.31 Abnormal electrocardiogram [ECG] [EKG] (principal) | CPT/HCPCS: 93010 ==

== ENCOUNTER → 2024-10-27 18:41 | Outpatient (BNV) | payer OTHER, SELFPAY | PROVIDERS: Emergency Provider Emergency Medicine; PCP Family Medicine; Visit Provider Radiology Neuroradiology | DX: R51.9 Headache, unspecified (principal); I10 Essential (primary) hypertension | CPT/HCPCS: 70450 ==